=== PATIENT | female | born 1970 | race Caucasian/White ===

== ENCOUNTER 2022-07-06 09:45 | Outpatient (RCR) | payer BC, SELFPAY | END 2022-10-10 10:53 | disposition home or self-care (01) | PROVIDERS: Visit Provider Family Medicine | DX: N81.10 Cystocele, unspecified (principal); Z51.89 Encounter for other specified aftercare | CPT/HCPCS: 97110; 97140; 97161 ==

== ENCOUNTER 2023-04-04 10:30 | Outpatient (RCR) | payer BC, SELFPAY | END 2023-05-14 14:31 | disposition home or self-care (01) | PROVIDERS: PCP Family Medicine; Visit Provider Specialist | DX: M51.26 Other intervertebral disc displacement, lumbar region (principal); Z51.89 Encounter for other specified aftercare | CPT/HCPCS: 97110; 97162 ==